=== PATIENT | male | born 1995 ===

== ENCOUNTER 2018-02-23 23:30 | Emergency (ER) | payer OTHER ==
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
[2018-02-24] MEDS ORDERED: Ketorolac Tromethamine 30 MG/ML VIAL ONE (00:47)
[2018-02-24] MEDS ORDERED: ISOVUE-370 76%-LOCM 1 ML ONE (12:18)
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
== END 2018-02-24 02:07 | disposition home or self-care (01) ==
LOC: ERS 23:30
DX: S49.92XA Unspecified injury of left shoulder and upper arm, initial encounter (principal); S30.1XXA Contusion of abdominal wall, initial encounter; S29.9XXA Unspecified injury of thorax, initial encounter; V89.2XXA Person injured in unspecified motor-vehicle accident, traffic, initial encounter; F17.210 Nicotine dependence, cigarettes, uncomplicated
CPT/HCPCS: 71046; 71260; 74177; J1885; J2270